=== PATIENT | female | born 1975 | race Two or more races ===

== ENCOUNTER 2019-03-05 18:28 | Emergency (ER) | payer MEDICARE, OTHER | END 2019-03-05 19:40 | disposition left against medical advice (07) | LOC: ER 18:28 | DX: R10.9 Unspecified abdominal pain (principal); Z53.21 Procedure and treatment not carried out due to patient leaving prior to being seen by health care provider | CPT/HCPCS: 36415; 74177; 80053; 82150; 83690; 85025; Q9967 ==

== ENCOUNTER → 2019-03-05 | Outpatient (CLI) | payer MEDICARE, OTHER ==
[~2019-03-05] MED LIST: IOHEXOL 300 MG/ML 100ML BOTTLE IJ ONE
[2019-03-05 18:32] LABS: Basophils # (auto) 0 uL; Basophils % (auto) 0.7 % (0.0-2.0); Eosinophils # (auto) 0.1 uL; Eosinophils % (auto) 2.9 % (0.0-7.0); Hematocrit 41.9 % (36.0-46.0); Hemoglobin 14.3 g/dL (12.2-16.2); Lymphocytes % (auto) 42.8 % (10.0-50.0); Mean Corpuscular Hemoglobin 29.4 pg (28.0-32.0); Mean Corpuscular Volume 86.4 fL (80.0-100.0); Monocytes # (auto) 0.4 uL; Monocytes % (auto) 8.9 % (0.0-12.0); Neutrophils % (auto) 44.7 % (37.0-80.0); Nucleated Red Blood Cells % 0.1 %; Platelet Count (auto) 249 10^3/uL (140-450); Red Blood Cells 4.85 10^6/uL (4.0-5.20); White Blood Cell 4.6 10^3/uL (4.4-10.8)
[2019-03-05 18:40] LABS: Albumin 3.4 g/dL (3.4-5.0); BUN/Creatinine Ratio 13.1; Calcium 8.7 mg/dL (8.5-10.1); Potassium 4.5 mmol/L (3.5-5.1)
[2019-03-05 18:43] LABS: Bilirubin, Total 0.4 mg/dL (0.2-1.0); Total Protein 7.9 g/dL (6.4-8.2)
== END | disposition home or self-care (01) ==
LOC: LAB 18:18
PROVIDERS: ATTEND Internal Medicine Pulmonary Disease
DX: R10.9 Unspecified abdominal pain (principal)
CPT/HCPCS: 36415; 80053; 82150; 83690; 85025; Q9967

== ENCOUNTER 2020-04-23 09:21 | Emergency (ER) | payer MEDICARE, OTHER, MEDICAID ==
[2020-04-23] VITALS (8 sets, daily range): BP systolic 106–137; BP diastolic 64–86
[~2020-04-23] VITALS: Ht 167.6 cm; Wt 65.8 kg
[2020-04-23] MEDS ORDERED: SODIUM CHLORIDE 0.9% 1,000 ML IV ONE (10:30)
[2020-04-23] MEDS ORDERED: ACETAMINOPHEN 500 MG TAB PO ONE (11:00)
[2020-04-23] MEDS ORDERED: BAMLANIVIMAB 700MG/200ML 200 ML IV ONE (11:00)
[2020-04-23 11:02] LABS: Basophils # (auto) 0 10 ^3/uL (0-0.2); Basophils % (auto) 0.7 % (0.0-2.0); Eosinophils # (auto) 0 10 ^3/uL (0-0.8); Eosinophils % (auto) 0.8 % (0.0-7.0); Hematocrit 39.1 % (36.0-46.0); Hemoglobin 13.2 g/dL (12.2-16.2); Lymphocytes # (auto) 1.3 10 ^3/uL (0.4-5.4); Lymphocytes % (auto) 42.8 % (10.0-50.0); Mean Corpuscular Hemoglobin 26.8 pg (28.0-32.0); Mean Corpuscular Hgb Conc. 33.7 g/dL (32.0-36.0); Mean Corpuscular Volume 79.6 fL (80.0-100.0); Monocytes # (auto) 0.2 10 ^3/uL (0-1.3); Monocytes % (auto) 6.4 % (0.0-12.0); Neutrophils # (auto) 1.5 10 ^3/uL (1.6-8.6); Neutrophils % (auto) 49.3 % (37.0-80.0); Nucleated Red Blood Cells % 0.1 %; Platelet Count (auto) 271 10^3/uL (140-450); Red Blood Cells 4.91 10^6/uL (4.0-5.20); Red Cell Distribution Width 14.5 % (11.8-14.3); White Blood Cell 3.1 10^3/uL (4.4-10.8)
[2020-04-23 11:16] LABS: Calcium 8.9 mg/dL (8.5-10.1); Chloride 107 mmol/L (98-107); Potassium 3.8 mmol/L (3.5-5.1); Sodium 139 mmol/L (136-145)
[2020-04-23 11:24] LABS: Alanine Aminotransferase 17 U/L (13-56); Albumin 3.5 g/dL (3.4-5.0); Alkaline Phosphatase 82 U/L (45-117); Anion Gap 4 (5-15); Aspartate Aminotransferase 15 U/L (15-37); BUN/Creatinine Ratio 19.6; Bilirubin, Total 0.4 mg/dL (0.2-1.0); Blood Urea Nitrogen 18 mg/dL (7-18); CRP High Sensitivity 0.03 mg/dL (< 0.3); Carbon Dioxide 28 mmol/L (21-32); GFR African American 86 mL/min; GFR Non-African American 71 mL/min; Glucose 111 mg/dL (74-106); Lactate Dehydrogenase 189 U/L (84-246); Total Protein 7.8 g/dL (6.4-8.2)
[2020-04-23] MEDS ORDERED: AZITHROMYCIN 500MG/ 250ML 250 ML IV ONE (12:30)
[2020-04-23] MEDS ORDERED: ERGOCALCIFEROL 50,000 UNIT(1.25MG) CAP PO SCH (12:30)
[2020-04-23] MEDS ORDERED: ERGOCALCIFEROL 50,000 UNIT(1.25MG) CAP PO ONE (12:30)
[2020-04-23] MEDS ORDERED: cefTRIAXone 1GM/50ML D5W 50 ML IV ONE (12:45)
== END 2020-04-23 15:04 | disposition home or self-care (01) ==
LOC: ER 09:21
DX: U07.1 COVID-19 (principal); J12.89 Other viral pneumonia; I10 Essential (primary) hypertension; Z88.6 Allergy status to analgesic agent; Z90.710 Acquired absence of both cervix and uterus
CPT/HCPCS: 36415; 71250; 80053; 82306; 82728; 83615; 84443; 84484; 85025; 85379; 86141; 96365; 96366; 96368; 99285; J0456; J0696; J7030; M0239; Q0239; 96367

== ENCOUNTER 2020-04-26 14:09 | Emergency (ER) | payer MEDICARE, OTHER, MEDICAID ==
[~2020-04-26] VITALS: Ht 152.4 cm; Wt 81.6 kg
[2020-04-26 15:30] LABS: Basophils # (auto) 0 10 ^3/uL (0-0.2); Eosinophils # (auto) 0 10 ^3/uL (0-0.8); Eosinophils % (auto) 0.2 % (0.0-7.0); Lymphocytes # (auto) 0.8 10 ^3/uL (0.4-5.4); Neutrophils # (auto) 4.1 10 ^3/uL (1.6-8.6); Neutrophils % (auto) 80.6 % (37.0-80.0); Red Cell Distribution Width 14.5 % (11.8-14.3)
[2020-04-26 15:32] LABS: Basophils % (auto) 0.6 % (0.0-2.0); Hematocrit 40.2 % (36.0-46.0); Hemoglobin 13.3 g/dL (12.2-16.2); Lymphocytes % (auto) 15.8 % (10.0-50.0); Mean Corpuscular Hemoglobin 26.4 pg (28.0-32.0); Mean Corpuscular Hgb Conc. 33.2 g/dL (32.0-36.0); Mean Corpuscular Volume 79.4 fL (80.0-100.0); Monocytes # (auto) 0.1 10 ^3/uL (0-1.3); Monocytes % (auto) 2.8 % (0.0-12.0); Nucleated Red Blood Cells % 0.1 %; Platelet Count (auto) 279 10^3/uL (140-450); Red Blood Cells 5.06 10^6/uL (4.0-5.20)
[2020-04-26 15:40] LABS: INR 1.03 (0.9-1.15)
[2020-04-26 16:07] LABS: Albumin 3.6 g/dL (3.4-5.0); Anion Gap 6 (5-15); Blood Urea Nitrogen 17 mg/dL (7-18); Calcium 8.8 mg/dL (8.5-10.1); Carbon Dioxide 28 mmol/L (21-32); Chloride 106 mmol/L (98-107); Glucose 119 mg/dL (74-106); Potassium 4.2 mmol/L (3.5-5.1); Sodium 140 mmol/L (136-145)
[2020-04-26 16:15] LABS: Alanine Aminotransferase 19 U/L (13-56); Alkaline Phosphatase 79 U/L (45-117); Aspartate Aminotransferase 16 U/L (15-37); BUN/Creatinine Ratio 19.1; Bilirubin, Total 0.4 mg/dL (0.2-1.0); CRP High Sensitivity < 0.02 mg/dL (< 0.3); GFR African American 89 mL/min; GFR Non-African American 74 mL/min; Lactate Dehydrogenase 196 U/L (84-246); Total Protein 7.8 g/dL (6.4-8.2)
[2020-04-26] MEDS ORDERED: IOHEXOL 300 MG/ML 100ML BOTTLE IJ ONE (16:23)
[2020-04-26 16:47] VITALS: BP 151/78
[2020-04-26] MEDS ORDERED: KETOROLAC TROMETH 30 MG/ML 1ML VIAL IV ONE (17:30)
== END 2020-04-26 17:56 | disposition home or self-care (01) ==
LOC: ER 14:09
DX: U07.1 COVID-19 (principal); R07.89 Other chest pain
CPT/HCPCS: 36415; 71260; 80053; 82728; 83615; 84484; 85025; 85379; 85610; 85730; 86141; 93005; 96374; 99285; J1885; Q9967

== ENCOUNTER 2020-05-28 18:42 | Emergency (ER) | payer MEDICARE, OTHER, MEDICAID ==
[~2020-05-28] VITALS: Ht 152.4 cm; Wt 81.6 kg
[2020-05-28] MEDS ORDERED: HYDROmorphone HCL 2 MG/ML VL IV ONE (19:00)
[2020-05-28] MEDS ORDERED: SODIUM CHLORIDE 0.9% 500 ML IVB ONE (19:00)
[2020-05-28] MEDS ORDERED: ONDANSETRON HCL 4 MG/2 ML VIAL IV ONE (19:00)
[2020-05-28 19:31] LABS: Basophils # (auto) 0 10 ^3/uL (0-0.2); Basophils % (auto) 0.9 % (0.0-2.0); Eosinophils # (auto) 0.1 10 ^3/uL (0-0.8); Eosinophils % (auto) 1.7 % (0.0-7.0); Hematocrit 36.4 % (36.0-46.0); Hemoglobin 12.4 g/dL (12.2-16.2); Lymphocytes # (auto) 1.8 10 ^3/uL (0.4-5.4); Lymphocytes % (auto) 38.2 % (10.0-50.0); Mean Corpuscular Hgb Conc. 34.2 g/dL (32.0-36.0); Mean Corpuscular Volume 78.9 fL (80.0-100.0); Monocytes # (auto) 0.3 10 ^3/uL (0-1.3); Monocytes % (auto) 7.1 % (0.0-12.0); Neutrophils # (auto) 2.4 10 ^3/uL (1.6-8.6); Neutrophils % (auto) 52.1 % (37.0-80.0); Nucleated Red Blood Cells % 0.1 %; Platelet Count (auto) 276 10^3/uL (140-450); Red Blood Cells 4.61 10^6/uL (4.0-5.20); Red Cell Distribution Width 15.9 % (11.8-14.3); White Blood Cell 4.7 10^3/uL (4.4-10.8)
[2020-05-28 19:39] LABS: Albumin 3.3 g/dL (3.4-5.0); Calcium 8.2 mg/dL (8.5-10.1); Potassium 3.8 mmol/L (3.5-5.1)
[2020-05-28 19:42] LABS: BUN/Creatinine Ratio 26.8; Bilirubin, Total 0.3 mg/dL (0.2-1.0); Total Protein 7.5 g/dL (6.4-8.2)
[2020-05-28 20:29] LABS: Urine Bacteria NONE SEEN /hpf (None Seen); Urine Blood Negative /uL (Negative); Urine Specific Gravity 1.006 (1.001-1.035); Urine WBC <1 /hpf (0 - 5)
[2020-05-28] MEDS ORDERED: OMNIPAQUE ORAL SOLN 500ml 12mg/ml PO ONE (20:31)
[2020-05-28] MEDS ORDERED: IOHEXOL 300 MG/ML 100ML BOTTLE IJ ONE (21:45)
[2020-05-28 22:23] VITALS: BP 124/66
== END 2020-05-28 23:27 | disposition home or self-care (01) ==
LOC: EEVIPCON 18:42 → ER 18:42
DX: R10.84 Generalized abdominal pain (principal); I10 Essential (primary) hypertension; Z90.710 Acquired absence of both cervix and uterus; Z88.6 Allergy status to analgesic agent
CPT/HCPCS: 36415; 74177; 80053; 81001; 83690; 85025; 96361; 96374; 96375; 99285; J1170; J2405; J7030; Q9967

== ENCOUNTER 2025-04-01 16:12 | Inpatient (IN) | payer MEDICARE, MEDICAID ==
[~2025-04-01] VITALS: Ht 152.4 cm; Wt 83.0 kg
--- NOTE | 2025-04-01 17:14 | ED.PDOC ---
History of present illness HPI Comments 49-year-old female who presented to the ED for chief complaint of elevated blood glucose. Patient presents with mother (physics instructor) who states that patient has been having increased urinary frequency urgency dehydration, polydipsia and frequent UTI's with the past two weeks. Patient was seen at [facility] today and had labs which showed a significant A1c of 11.8 I noted Accu- Chek in the 400's. Patient's mother states patient gets labs yearly and status the 1st time patient has had such elevated A1c and has no prior history of diabetes. Patient not in the ED has a noted Accu-Check of 357. Patient with the ED otherwise has stable vitals. Patient with a has noted history of hypertension and depression. Patient denies any other symptoms. Chief Complaint: Hyperglycemia Time Seen by MD: 17:26 Primary Care Provider: NOLBERTO History of present illness: Medications, Allergies Allergies: Coded Allergies: Aripiprazole (Verified Allergy, Unknown, 04/01/25) RASH Morphine (Verified Allergy, Unknown, 04/23/20) Information Source: Patient Mode of Arrival: Ambulatory Brought in by: self Timing: Hours Duration: Since onset Past Medical History PAST MEDICAL HISTORY: Depression, HTN Surgical History: Hysterectomy DIGITAL CONTENT COORDINATOR History: Denies all DIGITAL CONTENT COORDINATOR Hx Family History Family History: No family hx of Cancer, No family hx of DM, No family hx of Heart chari, No family hx of HTN Social History Smoker: Non-Smoker Alcohol: Denies ETOH Use Drugs: Denies Drug Use Lives In: Home Constitutional: denies: chills, diaphoresis, fatigue, fever, malaise, sweats, weakness, others EENTM: denies: blurred vision, double vision, ear bleeding, ear discharge, ear drainage, ear pain, ear ringing, eye pain, eye redness, hearing loss, mouth pain, mouth swelling, nasal discharge, nose bleeding, nose congestion, nose pain, photophobia, tearing, throat pain, throat swelling, voice changes, others Respiratory: denies: cough, hemoptysis, orthopnea, SOB at rest, shortness of breath, SOB with excertion, stridor, wheezing, others Cardiovascular: denies: chest pain, dizzy spells, diaphoresis, Dyspnea on exertion, edema, irregular heart beat, left arm pain, lightheadedness, palpitations, PND, syncope, others Gastrointestinal: denies: abdomen distended, abdominal pain, blood streaked bowels, constipated, diarrhea, dysphagia, difficulty swallowing, hematemesis, melena, nausea, poor appetite, poor fluid intake, rectal bleeding, rectal pain, vomiting, others Genitourinary: denies: abnormal vagina bleeding, burning, dyspareunia, dysuria, flank pain, frequency, hematuria, incontinence, pain, , vagina discharge, urgency, others Neurological: denies: dizziness, fainting, headache, left sided numbness, left sided weakness, numbness, paresthesia, pre-existing deficit, right sided numbness, right sided weakness, seizure, speech problems, tingling, tremors, weakness, others Musculoskeletal: denies: back pain, gout, joint pain, joint swelling, muscle pain, muscle stiffness, neck pain, others Integumetry: denies: bruises, change in color, change in hair/nails, dryness, laceration, lesions, lumps, rash, wounds, others Allergic/Immunocompromised: denies: Difficulty Healing, Frequent Infections, Hives, Itching, others Hematologic/Lymphatic: denies: anemia, blood clots, easy bleeding, easy bruising, swollen glands, others Endocrine: reports: excessive hunger, excessive thirst, excessive urination; denies: excessive sweating, flushing, intolerance to cold, intolerance to heat, unexplained weight gain, unexplained weight loss, others Psychiatric: denies: anxiety, bipolar disorder, depression, hopeless, panic disorder, schizophrenia, sleepless, suicidal, others All Other Systems: Reviewed and Negative Physical Exam General Appearance: No Apparent Distress, Normal HEENT: Normal ENT Inspection, Pharynx Normal, TMs Normal Neck: Full Range of Motion, Non-Tender, Normal, Normal Inspection Respiratory: Chest Non-Tender, Lungs Clear, No Accessory Muscle Use, No Respiratory Distress, Normal Breath Sounds Cardiovascular: No Edema, No JVD, No Murmur, No Gallop, Normal Peripheral Pulses, Regular Rate/Rhythm Breast Exam: Deferred Gastrointestinal: No Organomegaly, Non Tender, No Pulsatile Mass, Normal Bowel Sounds, Soft Genitalia: Deferred Pelvic: Deferred Rectal: Deferred Extremities: No calf tenderness, Normal capillary refill, Normal inspection, Normal range of motion, Non-tender, No pedal edema Musculoskeletal : Apperance: Normal Neurologic: Alert, winder hand II-XII nml as Tested, No Motor Deficits, Normal Affect, Normal Mood, No Sensory Deficits Cerebellar Function: Normal Reflexes: Normal Skin: Dry, Normal Color, Warm Lymphatic: No Adenopathy Was a procedure done? Was a procedure done?: No Differential Diagnosis (DM) Differential Diagnosis: Cholecystitis, Dehydration, Diabetic Coma, DKA, Electrolyte Abnormality, Encephalopathy, Hyperglycemia, Hyperosmolar State, Pancreatitis, UTI X-Ray, Labs, Meds, VS Vital Signs Date Time Temp Pulse Resp B/P (MAP) Pulse Ox O2 Delivery O2 Flow Rate FiO2 04/01/25 16:14 98.4 94 20 118/96 97 98.4 Lab Test 04/01/25 17:53 04/01/25 17:04 04/01/25 16:24 Range/Units Urine Color Light-yellow Yellow Urine Clarity Clear Clear Urine pH 5.0 5.0-9.0 Urine Specific [place] 1.040 H 1.001-1.035 Urine Protein Negative Negative Urine Ketones Trace Negative Urine Blood Negative Negative /uL Urine Nitrite Negative Negative Urine Bilirubin Negative Negative Urine Urobilinogen Normal Negative mg/dL Urine Leukocyte Esterase Negative Negative /uL Urine RBC 1 0 - 4 /hpf Urine Microscopic WBC 1 0-5 /HPF Urine Squamous Epithelial Cells Few <5 /hpf Urine Bacteria Few H None Seen /hpf Urine Glucose 4+ H Normal mg/dL White Blood Count 5.1 4.4-10.8 10^3/uL Red Blood Count 5.20 4.0-5.20 10^6/uL Hemoglobin 15.4 12.2-16.2 g/dL Hematocrit 44.9 36.0-46.0 % Mean Corpuscular Volume 86.3 80.0-100.0 fL Mean Corpuscular Hemoglobin 29.6 28.0-32.0 pg Mean Corpuscular Hemoglobin Concent 34.3 32.0-36.0 g/dL Red Cell Distribution Width 12.8 11.8-14.3 % Platelet Count 288 140-450 10^3/uL Mean Platelet Volume 8.0 6.9-10.8 fL Neutrophils (%) (Auto) 54.6 37.0-80.0 % Lymphocytes (%) (Auto) 37.2 10.0-50.0 % Monocytes (%) (Auto) 5.8 0.0-12.0 % Eosinophils (%) (Auto) 1.7 0.0-7.0 % Basophils (%) (Auto) 0.7 0.0-2.0 % Neutrophils # (Auto) 2.8 1.6-8.6 10 ^3/uL Lymphocytes # (Auto) 1.9 0.4-5.4 10 ^3/uL Monocytes # (Auto) 0.3 0-1.3 10 ^3/uL Eosinophils # (Auto) 0.1 0-0.8 10 ^3/uL Basophils # (Auto) 0 0-0.2 10 ^3/uL Nucleated Red Blood Cells 0.1 % Sodium Level 134 L 136-145 mmol/L Potassium Level 4.2 3.5-5.1 mmol/L Chloride Level 97 L 98-107 mmol/L Carbon Dioxide Level 26 20-31 mmol/L Anion Gap 11 5-15 Blood Urea Nitrogen 10 9-23 mg/dL Creatinine 0.88 0.550-1.02 mg/dL Glomerular Filtration Rate Calc 81 >90 mL/min BUN/Creatinine Ratio 11.4 10.0-20.0 Serum Glucose 328 H 74-106 mg/dL Lactic Acid Level 1.5 0.4-2.0 mmol/L Calcium Level 9.5 8.7-10.4 mg/dL Lipase 40 12-53 U/L Beta-Hydroxybutyric Acid 0.307 < 0.4 mmol/L POC Glucose 357 H 70-106 mg/dl Current Medications Medications (Trade) Dose Ordered Sig/Talia Route Start Time Stop Time Status Last Admin Sodium Chloride 1,000 ml @ 1,000 mls/hr Q1H ONCE IV 04/01/25 17:15 04/01/25 18:43 DC 04/01/25 17:29 X-Ray, Labs, Meds, VS Comment 49-year-old female here today with a concern for new diagnosis of diabetes but without evidence of DKA/HHS. Patient was started on fluids and will be admitted for further management and care. Time of 1ST Reevaluation: 18:00 Reevaluation 1ST: Unchanged Patient Education/Counseling: Diagnosis, Treatment Family Education/Counseling: Diagnosis, Treatment SEPSIS Sepsis Screen Date sepsis recognized/suspect: Apr 01, 2025 Time Sepsis recognized/suspect: 1613 Recent Procedure: No On Antibiotic Therapy: No Respiratory Rate >20: No Heart Rate >90: Yes Temp<36 C (96.8 F) or >38.3 C: No SBP <90 or MAP <65 mmHG: No New Acute Mental Status Change: No Is the patient on CPAP, BIPAP,: No Physician Orders Admit (04/01/25 19:04) Oxygen By Nasal Cannula (04/01/25 19:04) Stat Ekg For Chest Pain (04/01/25 19:04) Notify Md Of Changes From Base (04/01/25 19:04) Wireless Technician For 24 Hours (04/01/25 19:04) Emergency Dysrhythmia Protocol (04/01/25 19:04) Rhythm Strips Once Every Shift (04/01/25 19:04) Sodium Chloride 0.9% (04/01/25 19:15) Glucose Blood (Accu-Chek Comfort Curve T (04/02/25 00:00) Insulin R (Human) (Insulin R) (04/02/25 00:00) Dextrose 50% Syringe (04/01/25 19:15) Vital Signs Date Time Temp Pulse Resp B/P (MAP) Pulse Ox O2 Delivery O2 Flow Rate FiO2 04/01/25 16:14 98.4 94 20 118/96 97 98.4 Laboratory Tests Test 04/01/25 17:04 Lactic Acid Level 1.5 mmol/L (0.4-2.0) White Blood Count 5.1 10^3/uL (4.4-10.8) Medications Medications Dose Ordered Sig/Talia Route Start Time Stop Time Status Last Admin Dose Admin Sodium Chloride 1,000 ml @ 1,000 mls/hr Q1H ONCE IV 04/01/25 17:15 04/01/25 18:43 DC 04/01/25 17:29 Departure 1 Departure Time of Disposition: 19:15 Impression: Primary Impression: Diabetes mellitus with hyperglycemia Disposition: ADMITTED INPATIENT Admit to: Tele Condition: Stable Critical Care Note Critical Care Time?: Yes (30 min-critical care time only) Stability Stability form required: No Heart Score Heart Score: Heart Score Response (Comments) Value History N/A 0 EKG N/A 0 Age N/A 0 Risk Factors N/A 0 Troponin N/A 0 Total 0 I personally scribed for NAVDEEP CORRAL MD ([email or web address]) on 04/01/25 at 17:14. Electronically submitted by Lissa Wahl ([email or web address]). I personally scribed for NAVDEEP CORRAL MD ([email or web address]) on 04/01/25 at 17:28. Electronically submitted by Lissa Wahl ([facility] [place]). NAVDEEP CORRAL MD Apr 01, 2025 17:14
[2025-04-01 17:23] LABS: Hematocrit 44.9 % (36.0-46.0); Hemoglobin 15.4 g/dL (12.2-16.2); Mean Corpuscular Hemoglobin 29.6 pg (28.0-32.0); Mean Corpuscular Volume 86.3 fL (80.0-100.0); Nucleated Red Blood Cells % 0.1 %
[2025-04-01] MEDS: SODIUM CHLORIDE 0.9% 1,000 ML IV ONE ×2 (17:29→19:20)
[2025-04-01 17:42] LABS: Potassium 4.2 mmol/L (3.5-5.1)
[2025-04-01 17:43] LABS: Anion Gap 11 (5-15); Carbon Dioxide 26 mmol/L (20-31)
[2025-04-01 17:44] LABS: Calcium 9.5 mg/dL (8.7-10.4)
[2025-04-01 17:45] LABS: Chloride 97 mmol/L (98-107); Sodium 134 mmol/L (136-145)
[2025-04-01 17:49] LABS: BUN/Creatinine Ratio 11.4 (10.0-20.0); Blood Urea Nitrogen 10 mg/dL (9-23); Glucose 328 mg/dL (74-106)
[2025-04-01 18:44] LABS: Urine Protein, UAD Negative (Negative)
[2025-04-01] MEDS ORDERED: DEXTROSE (50%) 50ML SYRG IV PRN (19:15)
[2025-04-01 19:56] VITALS: BP 136/85; PULSE 90; RESP 18; TEMP 98.7; O2SAT 97
[2025-04-01 20:00] VITALS: PULSE 88; PULSE 90; RESP 18; O2SAT 97
[2025-04-01 20:04] LABS: Alanine Aminotransferase 19.0 U/L (7-40); Albumin 4.0 g/dL (3.2-4.8); Bilirubin, Direct 0.2 mg/dL (<0.3); Bilirubin, Total 0.6 mg/dL (0.2-1.0); Cholesterol 164.0 mg/dL (< 200); HDL Cholesterol 58.0 mg/dL (40-59); Total Protein 7.0 g/dL (5.7-8.2); Triglycerides 132.0 mg/dL (< 150)
[2025-04-01 20:12] LABS: Alkaline Phosphatase 141.0 U/L (46-116)
[2025-04-01 21:00] VITALS: BP 140/88; PULSE 90; RESP 18; TEMP 98.7; O2SAT 96
[2025-04-01] MEDS: ACCU-CHEK COMFORT CURVE STRIP VI SCH (21:28)
[2025-04-01] MEDS: InsuLIN REG 1unit/0.01ml Soln (100units/ml) SC SCH (21:28)
[2025-04-01] MEDS ORDERED: METO-158 PO (21:39)
[2025-04-01] MEDS ORDERED: OLAN2.5T38 PO (21:41)
[2025-04-01] MEDS ORDERED: LACTCAP35 OR (21:44)
[2025-04-01] MEDS ORDERED: PYRI1TAB11 PO (21:47)
[2025-04-01] MEDS ORDERED: POLY17PO5 PO (21:47)
--- NOTE | 2025-04-01 22:20 | DVHHPRES ---
History of Present Illness Resident Creating Document: HIEU DURAN RESIDENT History of Present Illness 49 Year old female with past medical history of depression, hypertension, diverticulitis status post sigmoid resection, ovarian cyst status post hysterectomy and oophorectomy, UTIs in the past presented with complaints of vo miting, nausea, epigastric pain for last two weeks. Patient mentioned that two weeks ago she started having vomiting episodes 1-2 every day associated with epigastric pain which is mild. She also has polyuria, polydipsia for last two weeks. She was feeling generalized weakness for last two weeks. As per mother at bedside, they found her to be sleeping more than usual which prompted them to take her to the ER. Patient's mother mentioned that she examined the patient genitals and patient has a monilial infection for which patient had fluconazole cream which had shown improvement in her symptoms of possible UTI including burning pain while passing urine. She denied any chest pain, shortness of breath, palpitations, diarrhea, constipation. Past medical history Depression, hypertension, diverticulitis status post sigmoid resection, ovarian cyst status post hysterectomy and oophorectomy Multiple UTIs in the past Patellar fracture Congenital pyloric stenosis status post myomectomy SVT Precocious puberty Early age hypertension Severe osteoarthritis of the knee Tear in gastrocnemius status post PRP therapy Past surgical history Breast reduction succinate Maxillary reconstruction Hysterectomy and oophorectomy Sigmoid resection Social history Lives with parents Denied smoking, marijuana, alcohol or any other drug intake Medication history Metoprolol Olanzapine Vitamin-D Fluoxetine Olanzapine MiraLax Vitamin B6 Premarin Allergic history Aripiprazole, lamotrigine, morphine Review of Systems Review of Systems As described in the HPI Allergies: Coded Allergies: Aripiprazole (Verified Allergy, Unknown, 04/01/25) RASH Lamotrigine (Verified Allergy, Unknown, 04/01/25) Morphine (Verified Allergy, Unknown, 04/02/25) Medications Current Medications Medications Dose Ordered Sig/Talia Route Start Time Stop Time Status Last Admin Dose Admin Dextrose 50 ml UD PRN IV 04/01/25 19:15 Diagnostic Test (Pha) 1 strip Q6HR 04/01/25 21:00 04/01/25 21:28 1 STRIP Insulin Human Regular Q6HR SC 04/01/25 21:00 04/01/25 21:28 8 UNITS Exam Vital Signs Vital Signs Date Time Temp Pulse Resp B/P (MAP) Pulse Ox O2 Delivery O2 Flow Rate FiO2 12/9/25 21:00 98.7 90 18 140/88 (105) 96 98.7 04/01/25 19:45 Room Air Exam Examination General Appearance: Alert, Oriented X3, Cooperative, No acute distress HEENT: EOMI Respiratory: Clear to auscultation, Normal air movement Cardiovascular: Regular rate, Normal S1, Normal S2 Abdominal: Normal bowel sounds Extremities: No cyanosis, No edema, Normal pulses, No tenderness/swelling Skin: No rashes, No breakdown Neuro: Normal speech and tone Labs/Xrays Labs Test 04/01/25 21:08 04/01/25 17:53 04/01/25 17:05 04/01/25 17:04 Range/Units POC Glucose 338 H 70-106 mg/dl Urine Color Light-yellow Yellow Urine Clarity Clear Clear Urine pH 5.0 5.0-9.0 Urine Specific [place] 1.040 H 1.001-1.035 Urine Protein Negative Negative Urine Ketones Trace Negative Urine Blood Negative Negative /uL Urine Nitrite Negative Negative Urine Bilirubin Negative Negative Urine Urobilinogen Normal Negative mg/dL Urine Leukocyte Esterase Negative Negative /uL Urine RBC 1 0 - 4 /hpf Urine Microscopic WBC 1 0-5 /HPF Urine Squamous Epithelial Cells Few <5 /hpf Urine Bacteria Few H None Seen /hpf Urine Glucose 4+ H Normal mg/dL Hemoglobin A1c 11.1 H <5.7 % A1C White Blood Count 5.1 4.4-10.8 10^3/uL Red Blood Count 5.20 4.0-5.20 10^6/uL Hemoglobin 15.4 12.2-16.2 g/dL Hematocrit 44.9 36.0-46.0 % Mean Corpuscular Volume 86.3 80.0-100.0 fL Mean Corpuscular Hemoglobin 29.6 28.0-32.0 pg Mean Corpuscular Hemoglobin Concent 34.3 32.0-36.0 g/dL Red Cell Distribution Width 12.8 11.8-14.3 % Platelet Count 288 140-450 10^3/uL Mean Platelet Volume 8.0 6.9-10.8 fL Neutrophils (%) (Auto) 54.6 37.0-80.0 % Lymphocytes (%) (Auto) 37.2 10.0-50.0 % Monocytes (%) (Auto) 5.8 0.0-12.0 % Eosinophils (%) (Auto) 1.7 0.0-7.0 % Basophils (%) (Auto) 0.7 0.0-2.0 % Neutrophils # (Auto) 2.8 1.6-8.6 10 ^3/uL Lymphocytes # (Auto) 1.9 0.4-5.4 10 ^3/uL Monocytes # (Auto) 0.3 0-1.3 10 ^3/uL Eosinophils # (Auto) 0.1 0-0.8 10 ^3/uL Basophils # (Auto) 0 0-0.2 10 ^3/uL Nucleated Red Blood Cells 0.1 % Sodium Level 134 L 136-145 mmol/L Potassium Level 4.2 3.5-5.1 mmol/L Chloride Level 97 L 98-107 mmol/L Carbon Dioxide Level 26 20-31 mmol/L Anion Gap 11 5-15 Blood Urea Nitrogen 10 9-23 mg/dL Creatinine 0.88 0.550-1.02 mg/dL Glomerular Filtration Rate Calc 81 >90 mL/min BUN/Creatinine Ratio 11.4 10.0-20.0 Serum Glucose 328 H 74-106 mg/dL Lactic Acid Level 1.5 0.4-2.0 mmol/L Calcium Level 9.5 8.7-10.4 mg/dL Total Bilirubin 0.6 0.2-1.0 mg/dL Direct Bilirubin 0.2 <0.3 mg/dL Aspartate Amino Transferase (AST) 18 13-40 U/L Alanine Aminotransferase (ALT) 19 7-40 U/L Alkaline Phosphatase 141 H 46-116 U/L Total Protein 7.0 5.7-8.2 g/dL Albumin 4.0 3.2-4.8 g/dL Triglycerides Level 132 < 150 mg/dL Cholesterol Level 164 < 200 mg/dL LDL Cholesterol 96 < 100 mg/dL HDL Cholesterol 58 40-59 mg/dL Lipase 40 12-53 U/L Vitamin B12 Level 444 211-911 pg/mL Beta-Hydroxybutyric Acid 0.307 < 0.4 mmol/L SEPSIS Sepsis Screen Date sepsis recognized/suspect: Apr 01, 2025 Time Sepsis recognized/suspect: 1613 Recent Procedure: No On Antibiotic Therapy: No Respiratory Rate >20: No Heart Rate >90: Yes Temp<36 C (96.8 F) or >38.3 C: No SBP <90 or MAP <65 mmHG: No New Acute Mental Status Change: No Is the patient on CPAP, BIPAP,: No Physician Orders Admit (04/01/25 19:04) Oxygen By Nasal Cannula (04/01/25 19:04) Stat Ekg For Chest Pain (04/01/25 19:04) Notify Md Of Changes From Base (04/01/25 19:04) Cement Mason For 24 Hours (04/01/25 19:04) Emergency Dysrhythmia Protocol (04/01/25 19:04) Rhythm Strips Once Every Shift (04/01/25 19:04) Sodium Chloride 0.9% (04/01/25 19:15) Dextrose 50% Syringe (04/01/25 19:15) Test, Urine (04/01/25 19:19) Urine Bacterial Culture (04/01/25 19:19) Consistent Carb(Ccho)Diabetes (04/02/25 Breakfast) Glucose Blood (Accu-Chek Comfort Curve T (04/01/25 21:00) Insulin R (Human) (Insulin R) (04/01/25 21:00) Vital Signs Date Time Temp Pulse Resp B/P (MAP) Pulse Ox O2 Delivery O2 Flow Rate FiO2 04/01/25 21:00 98.7 90 18 140/88 (105) 96 98.7 04/01/25 19:56 98.7 90 18 136/85 (102) 97 98.7 04/01/25 19:45 98 18 95 Room Air 04/01/25 19:45 98.9 98 18 128/100 (109) 95 98.9 04/01/25 16:14 98.4 94 20 118/96 97 98.4 Laboratory Tests Test 04/01/25 17:04 Lactic Acid Level 1.5 mmol/L (0.4-2.0) White Blood Count 5.1 10^3/uL (4.4-10.8) Medications Medications Dose Ordered Sig/Talia Route Start Time Stop Time Status Last Admin Dose Admin Diagnostic Test (Pha) 1 strip Q6HR 04/01/25 21:00 04/01/25 21:28 1 STRIP Insulin Human Regular Q6HR SC 04/01/25 21:00 04/01/25 21:28 8 UNITS Sodium Chloride 1,000 ml @ 75 mls/hr [id number] ONCE IV 04/01/25 19:15 04/02/25 08:34 04/01/25 19:20 75 MLS/HR Sodium Chloride 1,000 ml @ 1,000 mls/hr Q1H ONCE IV 04/01/25 17:15 04/01/25 18:43 DC 04/01/25 17:29 1,000 MLS/HR Assessment/Plan Assessment/Plan Assessment/plan # Interactable vomiting likely due to uncontrolled diabetes # Gen Weakness likely due to uncontrolled diabetes # New onset DM2, Uncontrolled, hemoglobin A1c 11.1 -IV fluids consistent carb diet sliding scale insulin and Accu-Cheks Hemoglobin A1c # ? UTI Urine analysis does not reveal any evidence of UTI Urine culture # Hypertension # history of SVT Resume metoprolol succinate # Depression -resume fluoxetine Code status discussed with the patient's family for greater than 21 minutes, full code Case discussion with Plan discussed with: Patient, Other (mother) My Orders Orders - HIEU DURAN Procedure Category Date Status Time Admit ADMIT 04/01/25 Transmitted 19:04 Oxygen By Nasal RT 04/01/25 Transmitted Cannula 19:04 Stat Ekg For Chest BANNER 04/01/25 In Process Pain 19:04 Notify Of Changes BANNER 04/01/25 In Process From Base 19:04 Cement Mason For ROSA ELENA 04/01/25 In Process 24 Hours 19:04 Emergency Dysrhythmia BANNER 04/01/25 In Process Protocol 19:04 Rhythm Strips Once BANNER 04/01/25 In Process Every Shift 19:04 Sodium Chloride 0.9% PHA 04/01/25 In Process 19:15 Dextrose 50% Syringe PHA 04/01/25 In Process 19:15 Test, Urine LAB 04/01/25 Logged 19:19 Urine Bacterial MANDIE 04/01/25 Uncollected Culture 19:19 Consistent DIET 04/02/25 Transmitted Carb(Ccho)Diabetes Breakfast Glucose Blood PHA 04/01/25 In Process (Accu-Chek Comfort 21:00 Insulin R (Human) PHA 04/01/25 In Process (Insulin R) 21:00 Visit Coding STANDARD RES Billing Provider: JULEE DELONG MD Date of Service if different f: Apr 01, 2025 Common Visit Codes: [id number] INP/OBS CARE (HIGH) Secondary Visit Codes: [id number] CARE PLAN 30 MINUTES HIEU DURAN RESIDENT Apr 01, 2025 22:20
[2025-04-01] MEDS ORDERED: FLUO40CA PO (22:55)
[2025-04-01] MEDS ORDERED: EST0625T PO (22:55)
[2025-04-01] MEDS ORDERED: CHOL20007 OR (22:55)
[2025-04-02] VITALS (7 sets, daily range): BP systolic 126–140; BP diastolic 78–87; PULSE 83–86; RESP 16–17; TEMP 96.9–98; O2SAT 97–99
[2025-04-02] MEDS ORDERED: ACCU-CHEK COMFORT CURVE STRIP VI SCH
[2025-04-02] MEDS ORDERED: InsuLIN REG 1unit/0.01ml Soln (100units/ml) SC SCH
[2025-04-02] MEDS: METOPROLOL SUCCINATE XL 50 MG TAB PO ONE (00:11)
[2025-04-02] MEDS ORDERED: METOPROLOL TARTRATE 50 MG TAB PO SCH (10:00)
[2025-04-02] MEDS: METOPROLOL SUCCINATE XL 50 MG TAB PO SCH (10:03)
--- NOTE | 2025-04-02 11:56 | DVHPN2 ---
Progress Note Date Seen: Apr 02, 2025 Medical Necessity Reason Pt with a Central, PICC or Fol: No Subjective Patient reports: No new complaints Review of Systems: HEENT:Normal, CVS:Normal, RESPIRATORY:Normal, GI:Normal, :Normal, MSK:Normal, NEURO:Normal Objective vital signs Vital Sign Date Time Temp Pulse Resp B/P (MAP) Pulse Ox O2 Delivery O2 Flow Rate FiO2 04/02/25 10:03 89 118/79 04/02/25 09:00 97.2 16 99 97.2 04/02/25 08:00 Room Air* 0 21 Total Intake and Output 04/01/25 04/01/25 04/02/25 15:00 23:00 07:00 Intake Total 625 ml Balance 625 ml medications Current Medications Medications Dose Ordered Sig/Talia Route Start Time Stop Time Status Last Admin Dose Admin Dextrose 50 ml UD PRN IV 04/01/25 19:15 Diagnostic Test (Pha) 1 strip Q6HR 04/01/25 21:00 04/02/25 05:56 1 STRIP Insulin Human Regular Q6HR SC 04/01/25 21:00 04/02/25 05:56 2 UNITS Fluoxetine HCl 40 mg DAILY PO 04/02/25 10:00 04/02/25 10:03 40 MG Metoprolol Succinate 50 mg DAILY PO 04/02/25 10:00 04/02/25 10:03 50 MG Metformin HCl 500 mg BIDWM PO 04/02/25 18:00 UNV Sodium Chloride 1,000 ml @ 75 mls/hr [id number] IV 04/02/25 11:45 UNV Insulin Glargine 15 units HS SC 04/02/25 22:00 UNV Examination: GENERAL:Normal, HEENT:Normal, NECK:Normal, LUNGS:Normal, CVS:Normal, ABDOMEN:Normal, MSK:Normal, SKIN:Normal, NEURO:Normal, :Normal laboratory and microbiology Laboratory Tests 04/01/25 17:04 Test 04/01/25 17:04 Range/Units Serum Glucose 328 H 74-106 mg/dL Problem List/Assessment/Plan Problem List/Assessment/Plan #1 new onset diabetes: ivf, lantus, metformin #2 obesity #3 htn #4 depression #5 ?vit b12 def advance care planning- full code- time spent 18 mins Plan discussed with: Patient My Orders My Orders Orders - SHIRA HORN MD Procedure Category Date Status Time Discontinue Tele ROSA ELENA 04/02/25 In Process 11:42 Transfer Orders XFER 04/02/25 Transmitted 11:42 Metformin PHA 04/02/25 Logged Hydrochloride 18:00 Sodium Chloride 0.9% PHA 04/02/25 Logged 11:45 Insulin Lantus PHA 04/02/25 Logged (Glargine) (Lantus) 22:00 Basic Metabolic Panel LAB 04/03/25 Verified 06:00 Magnesium LAB 04/03/25 Verified 05:00 Phosphorus LAB 04/03/25 Verified 06:00 Date of Service: Apr 02, 2025 Billing Provider: SHIRA HORN MD Common Visit Codes: [id number] INP/OBS CARE(HIGH) Secondary Visit Codes: [id number] CARE PLAN 30 MINUTES SHIRA HORN MD Apr 02, 2025 11:54
[2025-04-02] MEDS: SODIUM CHLORIDE 0.9% 1,000 ML IV SCH (12:52)
[2025-04-02] MEDS: OLANZapine 5 MG TAB PO SCH (20:50)
[2025-04-02] MEDS: MUPIROCIN 2% OINT 15gm or 22gm FOR MRSA NARES EACHNOSTRI SCH (22:02)
[2025-04-02] MEDS: INSULIN LANTUS (GLARGINE) 1 /0.01ml (100units/ml) SC SCH (22:04)
[2025-04-03 01:00] VITALS: BP_SYST 105; BP_SYST 161; BP_DIAS 64; BP_DIAS 85; PULSE 72; RESP 16; TEMP 96.9; O2SAT 96
[2025-04-03 05:00] VITALS: BP 99/69; PULSE 75; RESP 16; TEMP 96.9; O2SAT 97
[2025-04-03 05:29] LABS: Chloride 103 mmol/L (98-107); Potassium 3.8 mmol/L (3.5-5.1); Sodium 138 mmol/L (136-145)
[2025-04-03 05:30] LABS: Anion Gap 8 (5-15); Carbon Dioxide 27 mmol/L (20-31)
[2025-04-03 05:31] LABS: Calcium 8.6 mg/dL (8.7-10.4)
[2025-04-03 05:35] LABS: BUN/Creatinine Ratio 14.1 (10.0-20.0)
[2025-04-03 05:36] LABS: Magnesium 1.7 mg/dL (1.6-2.6)
[2025-04-03 05:40] LABS: Blood Urea Nitrogen 9 mg/dL (9-23); Glucose 196 mg/dL (74-106)
[2025-04-03 09:05] VITALS: BP 133/89; PULSE 86; RESP 17; TEMP 97.8; O2SAT 97
[2025-04-03 13:00] VITALS: BP 117/71; PULSE 82; RESP 17; TEMP 97.8; O2SAT 95
--- NOTE | 2025-04-03 13:44 | DVHDS2 ---
Discharge Summary Date of Admission Apr 01, 2025 at 19:04 Date of Discharge: Apr 03, 2025 Labs/Diagnostic Data: Laboratory Results Test 04/03/25 11:59 04/03/25 04:39 04/01/25 17:53 04/01/25 17:05 POC Glucose 217 mg/dl (70-106) Sodium Level 138 mmol/L (136-145) Potassium Level 3.8 mmol/L (3.5-5.1) Chloride Level 103 mmol/L (98-107) Carbon Dioxide Level 27 mmol/L (20-31) Anion Gap 8 (5-15) Blood Urea Nitrogen 9 mg/dL (9-23) Creatinine 0.64 mg/dL (0.550-1.02) Glomerular Filtration Rate Calc 109 mL/min (>90) BUN/Creatinine Ratio 14.1 (10.0-20.0) Serum Glucose 196 mg/dL (74-106) Calcium Level 8.6 mg/dL (8.7-10.4) Phosphorus Level 2.9 mg/dL (2.4-5.1) Magnesium Level 1.7 mg/dL (1.6-2.6) Urine Color Light-yellow (Yellow) Urine Clarity Clear (Clear) Urine pH 5.0 (5.0-9.0) Urine Specific [place] 1.040 (1.001-1.035) Urine Protein Negative (Negative) Urine Ketones Trace (Negative) Urine Blood Negative /uL (Negative) Urine Nitrite Negative (Negative) Urine Bilirubin Negative (Negative) Urine Urobilinogen Normal mg/dL (Negative) Urine Leukocyte Esterase Negative /uL (Negative) Urine RBC 1 /hpf (0 - 4) Urine Microscopic WBC 1 /HPF (0-5) Urine Squamous Epithelial Cells Few /hpf (<5) Urine Bacteria Few /hpf (None Seen) Urine Glucose 4+ mg/dL (Normal) Urine Test Negative (Negative) Hemoglobin A1c 11.1 % A1C (<5.7) Test 04/01/25 17:04 White Blood Count 5.1 10^3/uL (4.4-10.8) Red Blood Count 5.20 10^6/uL (4.0-5.20) Hemoglobin 15.4 g/dL (12.2-16.2) Hematocrit 44.9 % (36.0-46.0) Mean Corpuscular Volume 86.3 fL (80.0-100.0) Mean Corpuscular Hemoglobin 29.6 pg (28.0-32.0) Mean Corpuscular Hemoglobin Concent 34.3 g/dL (32.0-36.0) Red Cell Distribution Width 12.8 % (11.8-14.3) Platelet Count 288 10^3/uL (140-450) Mean Platelet Volume 8.0 fL (6.9-10.8) Neutrophils (%) (Auto) 54.6 % (37.0-80.0) Lymphocytes (%) (Auto) 37.2 % (10.0-50.0) Monocytes (%) (Auto) 5.8 % (0.0-12.0) Eosinophils (%) (Auto) 1.7 % (0.0-7.0) Basophils (%) (Auto) 0.7 % (0.0-2.0) Neutrophils # (Auto) 2.8 10 ^3/uL (1.6-8.6) Lymphocytes # (Auto) 1.9 10 ^3/uL (0.4-5.4) Monocytes # (Auto) 0.3 10 ^3/uL (0-1.3) Eosinophils # (Auto) 0.1 10 ^3/uL (0-0.8) Basophils # (Auto) 0 10 ^3/uL (0-0.2) Nucleated Red Blood Cells 0.1 % Serum Osmolality 295 mOsm/kg (278-298) Lactic Acid Level 1.5 mmol/L (0.4-2.0) Total Bilirubin 0.6 mg/dL (0.2-1.0) Direct Bilirubin 0.2 mg/dL (<0.3) Aspartate Amino Transferase (AST) 18 U/L (13-40) Alanine Aminotransferase (ALT) 19 U/L (7-40) Alkaline Phosphatase 141 U/L (46-116) Total Protein 7.0 g/dL (5.7-8.2) Albumin 4.0 g/dL (3.2-4.8) Triglycerides Level 132 mg/dL (< 150) Cholesterol Level 164 mg/dL (< 200) LDL Cholesterol 96 mg/dL (< 100) HDL Cholesterol 58 mg/dL (40-59) Lipase 40 U/L (12-53) Vitamin B12 Level 444 pg/mL (211-911) Beta-Hydroxybutyric Acid 0.307 mmol/L (< 0.4) Thyroid Stimulating Hormone (TSH) 2.57 uIU/mL (0.55-4.78) Other Laboratory Tests 04/03/25 04:39 04/01/25 17:04 Brief Hx & Hospital Course: SEE DICTATED NOTE Condition at Discharge: Good Final Diagnosis/Problems List DIABETES MELLITUS Discharge Disposition: Home Discharge Instruct/Medications Diet: Cardiac 2g Na,low cholest Activity: No Restrictions, As Tolerated Follow Up/Referral: FU WIHT PCP IN 1 WK Medications: RESUME HOME MEDS SCRIPT TO PHARMACY Scheduled Estrogens, Conjugated (Premarin Tablet), 0.625 MG PO DAILY, (Reported) Metoprolol Tartrate (Metoprolol Tartrate), 50 MG PO DAILY, (Reported) Olanzapine (Olanzapine), 2.5 MG PO DAILY, (Reported) Miscellaneous Medications Cholecalciferol (Vitamin D3), 2,000 UNIT OR, (Reported) Fluoxetine Hcl (Fluoxetine Hcl), 40 MG PO, (Reported) Lactobacillus (Probiotic), 1 OR, (Reported) Polyethylene Glycol 3350 (Miralax Mix-in [place]), 17 GM PO, (Reported) Pyridoxine HCl (Vitamin B6), 100 MG PO, (Reported) Discharge Statement: "Patient was advised to return to the ER or call 911 if any headaches, dizziness, shortness of breath, chest pain, abdominal pain, bleeding, fevers, or worsening of medical condition. Patient was counseled about treatment plan, medications, possible side effects, patientverbalized understanding. All questions were answered to the best of my ability. This discharge took greater then 30 minutes in planning, reviewing documentation, counseling the patient, and discussing with other team members." ASSESSMENT ASSESSMENT Assessment DIABETES MELLITUS Date of Service: Apr 03, 2025 Billing Provider: SHIRA HORN MD Common Visit Codes: 71025-QZX/OBS DISCH DAY >30min SHIRA HORN MD Apr 03, 2025 13:44
[2025-04-03] MEDS ORDERED: METF-371 PO (13:45)
[2025-04-03] MEDS ORDERED: INSLANTI SC (13:45)
--- NOTE | 2025-04-03 19:17 | DVHDS ---
DATE OF DISCHARGE: 04/03/2025 HISTORY OF PRESENT ILLNESS: The patient is a 49-year-old lady who is admitted with history of nausea, vomiting, and polyuria and polydipsia. She has history of depression, hypertension, and previous diverticulitis. HOSPITAL COURSE: The patient had elevated hemoglobin A1c of 11.1. Her blood sugars were elevated and she was placed on Lantus along with metformin. The patient's urine culture was contaminated. The patient will now be discharged. Her vitamin B12 level was 444. She will be discharged to be on metformin 850 mg b.i.d. with Lantus insulin 20 units at bedtime. She will follow up with her PCP in the next 1-2 weeks. FINAL DIAGNOSES: * New onset diabetes mellitus. * Obesity. * Hypertension. * Depression. Time spent in discharge planning and review of plan with the patient, family and nursing was 39 minutes. MD DENISE Francisco/JEFF TID: [id number] RECEIPT: [id number]
== END 2025-04-03 16:14 | disposition home or self-care (01) | DRG 639 ==
LOC: EEVIPCON 16:12 → ER 16:12 → OVERFLOW 19:04 → TELE-EAST 20:00
PROVIDERS: ADMIT Internal Medicine; ATTEND Internal Medicine
DX: E11.65 Type 2 diabetes mellitus with hyperglycemia (principal); E66.9 Obesity, unspecified; F32.A Depression, unspecified; I10 Essential (primary) hypertension; E86.0 Dehydration; Z90.710 Acquired absence of both cervix and uterus; Z87.440 Personal history of urinary (tract) infections; Z79.899 Other long term (current) drug therapy; Z68.39 Body mass index [BMI] 39.0-39.9, adult
CPT/HCPCS: 36415; 80048; 80061; 80076; 81001; 81025; 82010; 82607; 82962; 83036; 83605; 83690; 83735; 83930; 84100; 84443; 85025; 87081; 87086; 96360; 99291; G0378; J1815